=== PATIENT | male | born 1985 | race Caucasian/White ===

== ENCOUNTER 2016-12-10 12:16 | Emergency (ER) | payer MEDICARE, MEDICAID ==
[~2016-12-10 12:16] MED LIST: ABILIFY15 MG; HYDROCODONE; IBUPROFEN200 M2 PO; PERCOCET 5/3251 TAB PO; TRAZODONE HCL50 MG; [UNRECOGNIZED DRUG - OTHER] PO
[2016-12-10] MEDS ORDERED: ZYPREXA5 M1 PO (13:46)
== END 2016-12-10 14:15 ==
LOC: EDMED 12:16
DX: H92.03 Otalgia, bilateral (principal); F31.9 Bipolar disorder, unspecified

== ENCOUNTER 2017-01-12 15:22 | Emergency (ER) | payer MEDICARE, MEDICAID ==
[~2017-01-12 15:22] MED LIST changes: +ZYPREXA5 M1 PO
== END 2017-01-12 18:15 ==
LOC: EDMED 15:22
DX: M79.645 Pain in left finger(s) (principal); M79.644 Pain in right finger(s); F17.210 Nicotine dependence, cigarettes, uncomplicated; Z98.890 Other specified postprocedural states